=== PATIENT | female | born 1960 | race Caucasian/White ===

== ENCOUNTER 2017-05-20 15:21 | Emergency (ER) | payer OTHER, BC ==
[~2017-05-20] VITALS: Ht 177.8 cm; Wt 93.0 kg
[2017-05-20] MEDS ORDERED: KETOROLAC TROME10 MG PO (17:15)
== END 2017-05-20 17:31 | disposition home or self-care (01) ==
LOC: ED 15:21
DX: M25.562 Pain in left knee (principal); E03.9 Hypothyroidism, unspecified; Z90.49 Acquired absence of other specified parts of digestive tract; Z88.1 Allergy status to other antibiotic agents; Z88.0 Allergy status to penicillin; X50.1XXA Overexertion from prolonged static or awkward postures, initial encounter; Y92.69 Other specified industrial and construction area as the place of occurrence of the external cause; Y99.0 Civilian activity done for income or pay
CPT/HCPCS: 73560; 96372; 99283; J1885

== ENCOUNTER 2019-08-02 17:23 | Emergency (ER) | payer BC ==
[~2019-08-02] VITALS: Ht 177.8 cm; Wt 93.0 kg
[~2019-08-02 17:23] MED LIST: KETOROLAC TROME10 MG PO
[2019-08-02] MEDS ORDERED: ADVIL100 MG PO (17:40)
== END 2019-08-02 18:31 | disposition home or self-care (01) ==
LOC: ED 17:23
DX: S90.31XA Contusion of right foot, initial encounter (principal); Z88.0 Allergy status to penicillin; W22.8XXA Striking against or struck by other objects, initial encounter
CPT/HCPCS: 73630; 99283-25

== ENCOUNTER 2022-12-13 10:19 | Emergency (ER) | payer BC ==
[~2022-12-13] VITALS: Ht 177.8 cm; Wt 93.0 kg
[~2022-12-13 10:19] MED LIST changes: +ADVIL100 MG PO
[2022-12-13 11:48] VITALS: BP 136/65
== END 2022-12-13 12:05 | disposition home or self-care (01) ==
LOC: ED 10:19
DX: S61.411A Laceration without foreign body of right hand, initial encounter (principal); W26.0XXA Contact with knife, initial encounter; Z23 Encounter for immunization; Z88.0 Allergy status to penicillin; Z79.899 Other long term (current) drug therapy
CPT/HCPCS: 12002; 90471; 90715; 99282-25